=== PATIENT | female | born 2005 | race Caucasian/White ===

== ENCOUNTER 2023-11-23 11:21 | Outpatient (AMB) | payer OTHER, SELFPAY ==
--- NOTE | 2023-11-23 11:22 | AM.OFFWIN_ITS ---
Intake Vital Signs 11/23/23 11:23 Height 5 ft 3 in Weight 107 lb BMI 19.0 BP 110/60 Blood Pressure Location Lt brachial Position Sitting Pulse 102 H Pulse Source Pulse Oximeter Temp 97.9 F Temp Source Temporal Artery Scan Pulse Oximetry (%) 98 Oxygen Delivery Method Room Air Intake Visit Reasons: [employer] cut on wrist/?Stitches Intake Note: pt is here today for cut on wrist started today Patient Tobacco Use Status: Never used Tobacco Allergies No Known Allergies Allergy (Verified 11/23/23 11:26) Do you need a note to return to daycare/school/sports/work: No HPI HPI Comments History of Present Illness Details Patient is a 18-year-old female who states she was cutting something with a knife at home and accidentally slipped and cut the corner of her wrist. She states it has been bleeding since and is somewhat painful. She states she had her regular childhood immunizations, including Tdap, as normally scheduled, she is unsure how old she was when she received it. [facility] Social History Patient Tobacco Use Status: Never used Tobacco Review of Systems Const All systems reviewed & are unremarkable except as noted in HPI and below Physical Exam Vital Signs: Last Vital Signs Temp 97.9 F 11/23/23 11:23 Pulse 102 H 11/23/23 11:23 BP 110/60 11/23/23 11:23 Pulse Ox 98 11/23/23 11:23 Oxygen Delivery Method Room Air 11/23/23 11:23 BMI result Body Mass Index 19.0 Const General: cooperative, healthy appearing, comfortable, no acute distress and well developed Orientation/consciousness: patient oriented x3 Limitations: no limitations Skin Other: base of left lateral wrist has curved 2cm superficial laceration, no ecchymosis, no edema, no signs of infection noted, bleeding controlled. Neuro General: patient oriented x3 Office Procedures Laceration Repair Laceration repair performed by: Patricia Wong Explained risks and benefits to parent: Yes Informed consent given: Yes Location: left base of left wrist Length: 2cm Sedation: No Irrigation: saline Preparation: betadine Wound exploration: none Deep closure: No Skin closure: other (steri strips) Technique: applied steri - strips Patient tolerated procedure: well [place]: [place] [id number] Repair <2.5cm Procedure code (CPT) selection complete Assessment & Plan Assessment & Plan (1) Cut of left wrist: Code(s): S61.512A - Laceration without foreign body of left wrist, initial encounter Plan: As laceration was very superficial and edges were already approximated, applied Steri-Strips and a Band-Aid. Gave patient extra supplies and advised if they did not stay on, to come back and we could suture it but it is so superficial, I think the Steri-Strips will be fine. Plan See above Orders: Orders TDaP Immunization Today S61.512A - Laceration without foreign body of left wrist, initial encounter Medications: New Boostrix Tdap (diphth,pertus(acell),tetanus) 0.5 mL IM ONCE 0.5 mL 0RF cut wrist with knife NS S61.512A - Laceration without foreign body of left wrist, initial encounter Coding Level of Care Code New Pt Level 3 (85521) Diagnoses Cut of left wrist S61.512A
[2023-11-23 11:23] VITALS: BP 110/60; PULSE 102; TEMP 36.6; O2SAT 98; BMI 19.0
== END 2023-11-23 11:55 | disposition home or self-care (01) ==
PROVIDERS: Visit Provider Physician Assistant
DX: S61.512A Laceration without foreign body of left wrist, initial encounter (principal)
CPT/HCPCS: 90471; 90715; 99203